=== PATIENT | female | born 1940 | race Caucasian/White ===

== ENCOUNTER → 2016-11-12 | Outpatient (CLI) | payer OTHER ==
--- NOTE | 2016-11-12 14:03 | MAMMOGRAPHY REPORT ---
BILATERAL DIGITAL SCREENING MAMMOGRAM WITH CAD: 11/12/2016 CLINICAL HISTORY: Routine screening. Patient has no complaints. TECHNIQUE: Current study was also evaluated with a Computer Aided Detection (CAD) system. Bilateral CC and MLO views were obtained. COMPARISON: Comparison is made to exams dated: 11/05/2015 mammogram, 10/30/2014 mammogram, 10/23/2013 ma mmogram, 10/20/2012 mammogram, 10/20/2011 mammogram, and 08/25/2010 mammogram - [facility] nter. BREAST COMPOSITION: There are scattered areas of fibroglandular density in both breasts. FINDINGS: No suspicious masses, calcifications, or areas of architectural distortion are noted in ei ther breast. There has been no significant interval change compared to prior exams. IMPRESSION: ACR BI-RADS CATEGORY 1: NEGATIVE There is no mammographic evidence of malignancy. A 1 year screening mammogram is recommended. The pa tient will receive written notification of the results. Approximately 10% of breast cancers are not detected with mammography. A negative mammographic report should not delay biopsy if a clinically suggestive mass is present. Roseann Sorensen M.D. /:11/12/2016 12:14:16 Soybean Grower: Marion CABEZAS)(Nina), [facility] letter sent: Normal 1/2 BI-RADS Code: ACR BI-RADS Category 1: Negative
== END | disposition home or self-care (01) ==
LOC: C.MAMM 11:45
PROVIDERS: ATTEND Family Medicine
DX: Z12.31 Encounter for screening mammogram for malignant neoplasm of breast (principal)

== ENCOUNTER → 2017-11-15 | Outpatient (CLI) | payer OTHER ==
--- NOTE | 2017-11-16 14:58 | MAMMOGRAPHY REPORT ---
BILATERAL DIGITAL SCREENING MAMMOGRAM TOMOSYNTHESIS WITH CAD: 11/15/2017 CLINICAL HISTORY: Routine screening. TECHNIQUE: The study was acquired using full field digital technology and interpreted from soft copy. Breast tomosynthesis in addition to standard 2D mammography was performed. Current study was also ev aluated with a Computer Aided Detection (CAD) system. COMPARISON: Comparison is made to exams dated: 11/12/2016 mammogram, 11/05/2015 mammogram, 10/30/2014 ma mmogram, 10/23/2013 mammogram, 10/20/2012 mammogram, and 10/20/2011 mammogram - [facility] nter. BREAST COMPOSITION: There are scattered areas of fibroglandular density in both breasts. FINDINGS: The parenchymal pattern is unchanged. No developing mass, architectural distortion or cluster of susp icious microcalcifications is seen in either breast. There are benign calcifications in both breasts . IMPRESSION: ACR BI-RADS CATEGORY 2: BENIGN There is no mammographic evidence of malignancy. A 1 year screening mammogram is recommended.( 019) The patient will receive written notification of the results. Some breast cancers are not detected with mammography. A negative mammographic report should not barbie y biopsy if a clinically suggestive mass is present. Zeny Benavides M.D. ay/:11/15/2017 16:15:27 Information Scientist: RT Miguel(Aileen)(M), [facility] letter sent: Normal 1/2 BI-RADS Code: ACR BI-RADS Category 2: Benign
== END | disposition home or self-care (01) ==
LOC: C.MAMM 11:56
PROVIDERS: ATTEND Family Medicine
DX: Z12.31 Encounter for screening mammogram for malignant neoplasm of breast (principal)

== ENCOUNTER 2022-07-09 15:41 | Inpatient (IN) ==
[2022-07-09] MEDS ORDERED: SODIUM CHLORIDE 0.9% 1000ML 1,000 ML IV ONE (16:02)
[2022-07-09 16:28] LABS: Basophils # (auto) 0.06 K/uL (0-0.2); Basophils % (auto) 0.4 %; Eosinophils # (auto) 0.35 K/uL (0-0.50); Eosinophils % (auto) 2.2 %; Hematocrit (blood only) 47.5 % (37.0-47.0); Hemoglobin 16.3 g/dl (12.0-16.0); Immature Granulocytes # (auto) 0.05 K/uL (0.01-0.20); Immature Granulocytes % (auto) 0.3 %; Lymphocytes # (auto) 2.68 K/uL (1.2-3.4); Lymphocytes % (auto) 16.7 %; Mean Corpuscular Hemoglobin 32.2 pg (25.0-34.0); Mean Corpuscular Hgb Conc 34.3 g/dL (32.0-36.0); Mean Corpuscular Volume 93.9 fL (80.0-100.0); Mean Platelet Volume 10.1 fL (9.4-12.4); Monocytes % (auto) 6.2 %; Neutrophils # (auto) 11.89 K/uL (1.40-6.50); Neutrophils % (auto) 74.2 %; Platelet Count 308 K/uL (130-400); RDW Coefficient of Variation 12.7 % (11.5-14.5); Red Blood Count 5.06 M/uL (4.20-5.40); White Blood Count 16.03 K/ul (4.8-10.8)
[2022-07-09 16:49] LABS: Albumin Level 4.5 gm/dl (3.4-5.0); Bilirubin Direct 0.2 mg/dl (0-0.2); Bilirubin,Total 0.8 mg/dl (0.2-1.0); Creatinine Clr Calc Pharmacy 55.9 ml/min; Est GFR (African American) 87.3 ml/min; Est GFR (Non-African American) 75.3 ml/min; Potassium 3.5 mmol/L (3.5-5.1); Total Protein 7.5 gm/dl (6.0-8.3)
[2022-07-09 17:02] LABS: Influenza A virus by PCR Negative (Neg); Influenza B virus by PCR Negative (Neg); RSV by PCR Negative (Neg); SARS CoV2 RNA(COVID-19) Ceph NEGATIVE (Negative)
[2022-07-09] MEDS ORDERED: OPTIRAY 350 100ml IV ONE (17:11)
--- NOTE | 2022-07-09 17:32 | CT Scan Report ---
CT OF THE ABDOMEN AND PELVIS WITH CONTRAST CLINICAL HISTORY: Nausea and vomiting. COMPARISON STUDY: None. TECHNIQUE: Following IV administration of 78 mL of Optiray, axial images of the abdomen and pelvis we re obtained from the lung bases to the proximal femurs. Images were reviewed in the axial, sagittal, and coronal planes. IV contrast was administered without complication. Automated exposure control wa s utilized for the study. A dose lowering technique was utilized adhering to the principles of ALARA . CT DOSE: 1053.78 mGy.cm FINDINGS: Lung bases are unremarkable. No pneumatosis, free air or portal venous gas is present. Live r, spleen, adrenal glands and pancreas are unremarkable. There is no biliary or pancreatic ductal dil atation. 2 left renal cysts measure up to 2.8 cm. There is no hydronephrosis. This study is mildly co mpromised by motion artifact. There is no evidence for a bowel obstruction. Extensive colonic diverti culosis is noted. There is no evidence for acute diverticulitis. The distal small bowel and right col on are mildly fluid-filled. The appendix is mildly dilated, measuring 8 mm in caliber. There is no ad jacent stranding. No free air or abscess is present. Calcified fundal fibroid is incidentally noted. There is no ascites. No lymphadenopathy. No acute fractures. No suspicious lesions are identified wit hin the visualized skeletal structures. IMPRESSION: 1. Mildly dilated appendix. However, no adjacent inflammation. Acute appendicitis is considered unlik yanci however close clinical follow-up is recommended. 2. Fluid-filled distal small bowel and right colon. This may reflect gastroenteritis. No bowel obstru ction. 3. Extensive colonic diverticulosis. No evidence for acute diverticulitis. ACT 112: Negative or not required by law. Electronically signed by: Camacho Loja M.D. 07/09/2022 5:30 PM
[2022-07-09] MEDS ORDERED: metroNIDAZOLE 500 MG/100 ML BAG IV STA (17:43)
[2022-07-09] MEDS ORDERED: cefTRIAXone SODIUM 1 GM ADDVIAL IV STA (17:43)
[2022-07-09] MEDS ORDERED: SODIUM CHLORIDE 0.9% 1000ML 1,000 ML IV SCH (18:00)
[2022-07-09] MEDS ORDERED: cefTRIAXone SODIUM 1,000 MG Advantage IV ONE (18:00)
[2022-07-09] MEDS ORDERED: cefTRIAXone SODIUM 1,000 MG in DEXTROSE 5% 50 ML IV ONE (18:00)
[2022-07-09 18:25] LABS: Appearance Urine Clear (Clear); Bilirubin Urine Negative (Negative); Blood Urine Negative (Negative); Color Urine Yellow; Glucose Urine UA Negative (Negative); Ketones Urine Negative (Negative); Leukocyte Esterase Urine Negative (Negative); Nitrite Urine Negative (Negative); Protein Urine Negative (Negative); Specific Gravity Urine 1.037 (1.000-1.030); Urobilinogen Urine Negative (Negative)
[2022-07-09] MEDS ORDERED: DEXTROSE 50% 50 ML SYRINGE IV ONE (18:52)
--- NOTE | 2022-07-09 18:54 | History & Physical Report ---
Date of Service July 09, 2022 Assessment & Plan (1) Nausea and vomiting: (2) Gastroenteritis: (3) Prolonged Q-T interval on ECG: (4) T2DM (type 2 diabetes mellitus): (5) HLD (hyperlipidemia): (6) Hypothyroidism: Plan This is an 81-year-old female who has significant past medical history of HTN, HLD, T2DM, hypothyroidism, age-related osteoporosis, idiopathic stuttering who presents to ED secondary to nausea and vomiting x2 days. Daughter is at bedside. Patient states on Wednesday, 5 days ago, she developed nausea and vomiting that lasted for several hours. CT abd/pelvis: Mildly dilated appendix. However, no adjacent inflammation. Acute appendicitis is considered unlikely however close clinical follow-up is recommended.2. Fluid-filled distal small bowel and right colon. This may reflect gastroenteritis. No bowel obstruction.3. Extensive colonic diverticulosis. No evidence for acute diverticulitis. Nausea and vomiting Gastroenteritis It appears as though patient may be suffering from gastroenteritis, possibly vi ral General surgery on board due to mildly dilated appendix, less likely acute appendicitis in setting of no abdominal pain -appreciate their recommendations, discussed with Tito Zapata PA-C Due to leukocytosis and gastroenteritis we will continue IV antibiotics for now with Rocephin and Flagyl Clear liquid diet Patient dehydrated with evidence of polycythemia on CBC, IV fluid NSS plus KCl a t 80 cc/h for additional 2 L, tomorrow attending can reassess fluid requirement If patient develops nausea, vomiting or abdominal pain overnight we will revert back to strict n.p.o. As needed Phenergan Prolonged QTc on interval EKG Repeat EKG in a.m. Last EKG in [facility] was from 2009 revealed normal QTc QTc length of 507 and 649 noted on ED EKG, patient is not on any QTc prolonging meds If still prolonged consider discussing with cardiology colleague T2DM, insulin dependent Last A1c 7.9 in January Obtain A1c in a.m. Lantus/NovoLog per protocol Hyperlipidemia Continue statin Hypothyroidism Continue Synthroid History of hypertension Not on meds, BP 147/98 in ED Monitor DVT prophylaxis: SQ heparin PCP: [place] FULL CODE Dispo: med tele A total of 75 minutes was spent with greater than 50% of that time personally viewing all current laboratory work and diagnostic imaging studies obtained in the ED. Additionally, I was able to view the patients past medication reconciliation and history with direct visualization in the patients chart. Included in the time above, a portion of that time was spent assessing the patient while discussing and collaborating with specialists, if necessary, and making medical decision making on treatment plan. All of the above was collaborated with Dr. Montes. Please see addendum for further details. History of Present Illness Chief Complaint: N/V x 2 days. Primary Care Provider: Marion El DO This is an 81-year-old female who has significant past medical history of HTN, HLD, T2DM, hypothyroidism, age-related osteoporosis, idiopathic stuttering who presents to ED secondary to nausea and vomiting x2 days. Daughter is at bedside. Patient states on Wednesday, 5 days ago, she developed nausea and vomiting that lasted for several hours. She just assumed she had a gastroenteritis. The following 2 to 3 days she felt generally unwell, but each day progressed to feeling better. Her appetite has been significantly decreased. 2 days ago she was able to return to her exercise class and she even had exercise class this morning. Yesterday and this morning she felt in her normal state of health. At baseline she lives alone at home, ambulates assist device and still drives. Today around 1 PM she developed acute onset nausea and profuse vomiting. She also felt dizzy and lightheaded. She was to see her PCP today, but called into the nurse who recommended EMS be summoned. In route she received antinausea medication and in ED received IV fluid. She is starting to feel better. Prior to my examination patient's blood sugar dropped to 57 and she refused received D50 which then improved her blood sugar to the low 200s. She denies any sick contacts, fever, chills, sweats, chest pain, shortness breath, palpitations, Cough, URI symptoms, abdominal pain, dysuria, increased urgency or frequency with urination, melena or hematochezia. She does feel generally bloated and also had diarrhea on Wednesday but denied any diarrheal episodes today. In ED patient remained hemodynamically stable. Lab work was notable for elevated WBC at 16 K, H&H 16.3 and 47.5, BUN 15, creatinine 0.75, urinalysis normal. CT abdomen pelvis concerning for mildly dilated appendix however no adjacent inflammation, fluid-filled distal small bowel and right colon concerning for a gastroenteritis. In ED she received IV fluid, 1 g IV Rocephin and 500 mg of IV Flagyl. Allergies Allergy/AdvReac Type Severity Reaction Status Date / Time Penicillins Allergy Mild RASH Verified 02/15/13 10:42 tetracycline Allergy Mild RASH Verified 02/15/13 10:42 morphine and related AdvReac mental Uncoded 07/09/22 18:50 status changes after codeine Home Medications Medication Instructions Recorded Confirmed Type alendronate 70 mg tablet 70 mg PO WK 07/09/22 07/09/22 History atorvastatin 80 mg tablet 80 mg PO DAILY 07/09/22 07/09/22 History cholecalciferol (vitamin D3) 25 25 mcg PO DAILY 07/09/22 07/09/22 History mcg (1,000 unit) tablet (Vitamin D3) insulin aspart U-100 100 unit/mL 1 sliding scale dose subcut 07/09/22 07/09/22 History (3 mL) subcutaneous pen (Novolog USEASDIRECTD FlexPen U-100 Insulin aspart) insulin degludec 100 See Rx Instructions .Route .COMPLEX 07/09/22 07/09/22 History unit-liraglutide 3.6 mg/mL(3 mL) subcutaneous pen (Xultophy 100/3.6) levothyroxine 75 mcg tablet 75 mcg PO DAILYBB 07/09/22 07/09/22 History Past Med/Surg History Medical History (Updated 07/09/22 @ 20:20 by Kimberly Bright PA-C) Age related osteoporosis HLD (hyperlipidemia) HTN (hypertension) Hx of vaginal delivery Hypothyroidism Idiopathic stuttering T2DM (type 2 diabetes mellitus) Surgical History (Updated 07/09/22 @ 20:13 by Kimberly Bright PA-C) History of tonsillectomy and adenoidectomy History of vitrectomy Hx of tubal ligation Family History (Updated 07/09/22 @ 20:17 by Kimberly Bright PA-C) Father Cancer Mother Cancer Social History (Updated 07/09/22 @ 20:15 by Kimberly Bright PA-C) Smoking Status: Former smoker Tobacco Type: Cigarettes packs per day: 1; Smoking End Date: ; Hx Alcohol Use: No Hx Substance Use: No Review of Systems Review of Systems: All systems reviewed & are unremarkable except as noted in HPI & below Physical Exam Physical Exam: Constitutional: WD/WN, elderly, female, idiopathic stutter noted, hard of hea ring but improves without mask, vitals as above, NAD, sitting up in bed, pleasant, conversing easily Head: Normocephalic, Atraumatic Eyes: PERRL, conjunctivae normal, anicteric sclerae ENMT: external ear and nose normal, oropharynx normal Neck: trachea midline, no thyromegaly normal visual inspection dry membranes Respiratory: normal respiratory effort, lungs clear to auscultation, no wheeze, rales, rhonchi. Normal insp/exp effort, no accessory muscle use Cardiovascular: RRR, no murmur, no edema Vessels: no JVD or carotid bruit Chest: normal inspection of chest Abdomen: normal bowel sounds, soft, nontender, mild distention, no hepatosplenomegaly Musculoskeletal: no cyanosis or clubbing, extremities motor strength 5/5 Skin: no rashes, warm and dry normal turgor Neurologic: PERRL, EOMI, accommodation nl, no face palsy, no dysarthria CN's II-XI intact bilaterally and moves all extremities Psychiatric: A+Ox3, euthymic affect Lymphatic: no cervical or axillary lymphadenopathy : deferred Results & Data Results & Data Vital Signs (Past 12 Hours) Vital Signs Temp Pulse Pulse Resp BP BP Pulse Ox 07/09/22 17:50 102 H 22 98 07/09/22 17:46 105 H 24 98 07/09/22 17:46 152/78 H 07/09/22 17:45 113 H 07/09/22 17:00 96 H 28 H 95 07/09/22 17:00 130/77 07/09/22 16:54 95 H 32 H 97 07/09/22 16:54 136/73 07/09/22 16:50 95 H 28 H 95 07/09/22 16:40 97 H 19 97 07/09/22 16:30 100 H 28 H 95 07/09/22 16:20 99 H 25 H 95 07/09/22 16:10 103 H 29 H 96 07/09/22 16:08 104 H 27 H 93 07/09/22 16:14 104 H 07/09/22 16:03 95 07/09/22 15:58 103 H 22 152/85 H 95 07/09/22 15:58 36.8 C 103 H 22 152/85 H 95 O2 Del Method 07/09/22 17:50 07/09/22 17:46 07/09/22 17:46 07/09/22 17:45 07/09/22 17:00 07/09/22 17:00 07/09/22 16:54 07/09/22 16:54 07/09/22 16:50 07/09/22 16:40 07/09/22 16:30 07/09/22 16:20 07/09/22 16:10 07/09/22 16:08 07/09/22 16:14 07/09/22 16:03 Room Air 07/09/22 15:58 Room Air 07/09/22 15:58 Room Air Diagnostic Findings Abdomen/Pelvis CT 07/09/22 16:39 CT OF THE ABDOMEN AND PELVIS WITH CONTRAST CLINICAL HISTORY: Nausea and vomiting. COMPARISON STUDY: None. TECHNIQUE: Following IV administration of 78 mL of Optiray, axial images of the abdomen and pelvis were obtained from the lung bases to the proximal femurs. Images were reviewed in the axial, sagittal, and coronal planes. IV contrast was administered without complication. Automated exposure control was utilized for the study. A dose lowering technique was utilized adhering to the principles of ALARA. CT DOSE: 1053.78 mGy.cm FINDINGS: Lung bases are unremarkable. No pneumatosis, free air or portal venous gas is present. Liver, spleen, adrenal glands and pancreas are unremarkable. There is no biliary or pancreatic ductal dilatation. 2 left renal cysts measure up to 2.8 cm. There is no hydronephrosis. This study is mildly compromised by motion artifact. There is no evidence for a bowel obstruction. Extensive colonic diverticulosis is noted. There is no evidence for acute diverticulitis. The distal small bowel and right colon are mildly fluid-filled. The appendix is mildly dilated, measuring 8 mm in caliber. There is no adjacent stranding. No free air or abscess is present. Calcified fundal fibroid is incidentally noted. There is no ascites. No lymphadenopathy. No acute fractures. No suspicious lesions are identified within the visualized skeletal structures. IMPRESSION: 1. Mildly dilated appendix. However, no adjacent inflammation. Acute appendicitis is considered unlikely however close clinical follow-up is recommended. 2. Fluid-filled distal small bowel and right colon. This may reflect gastroenteritis. No bowel obstruction. 3. Extensive colonic diverticulosis. No evidence for acute diverticulitis. ACT 112: Negative or not required by law. Electronically signed by: Camacho Loja M.D. 07/09/2022 5:30 PM Medications Administered Medication List Sodium Chloride (Nss 1000ml) 1,000 mls @ 125 mls/hr IV .Q8H RAHUL Stop: 08/08/22 17:59 Last Admin: 07/09/22 18:08 Dose: 125 mls/hr Documented By: ALFONZO Discontinued Medications Dextrose (Dextrose 50% 50 Ml Syringe) Confirm Administered Dose 50 ml IV .STK- MED ONE Stop: 07/09/22 18:53 Last Admin: 07/09/22 18:52 Dose: 50 ml Documented By: ALFONZO Sodium Chloride (Nss 1000ml) 1,000 mls @ 999 mls/hr IV .Q1H1M ONE Stop: 07/09/22 17:02 Last Infusion: 07/09/22 17:05 Dose: 0 mls/hr Documented By: Admin: 07/09/22 16:13 Dose: 999 mls/hr Documented By: ALFONZO Metronidazole (Flagyl) 500 mg in 100 mls @ 100 mls/hr IV NOW STA Stop: 07/09/22 18:42 Last Infusion: 07/09/22 18:59 Dose: 0 mls/hr Documented By: Admin: 07/09/22 18:07 Dose: 100 mls/hr Documented By: ALFONZO Ceftriaxone Sodium 1,000 mg/ (Dextrose) 50 mls @ 100 mls/hr IV NOW ONE Stop: 07/09/22 18:29 Last Infusion: 07/09/22 19:56 Dose: 0 mls/hr Documented By: Admin: 07/09/22 19:13 Dose: 100 mls/hr Documented By: ALFONZO Ioversol (Optiray 350 100ml) 78 ml IV ONCE ONE Stop: 07/09/22 17:12 Last Admin: 07/09/22 17:11 Dose: 78 ml Documented By: MICHELLE ECG Additional Comments: EKG reveals sinus tachycardia with a rate of 104 bpm and QTc of 507, initial EKG revealed 104 bpm, sinus tachycardia with a QTc of 649ms COVID-19 Results Results COVID-19 Adm Lab Results: RBC 5.06 M/uL (4.20-5.40) 07/09/22 WBC 16.03 K/ul (4.8-10.8) H 07/09/22 Hgb 16.3 g/dl (12.0-16.0) H 07/09/22 Hct 47.5 % (37.0-47.0) H 07/09/22 Plt Count 308 K/uL (130-400) 07/09/22 Neutrophils (%) (Auto) 74.2 % 07/09/22 Lymphocytes (%) (Auto) 16.7 % 07/09/22 Monocytes # (Auto) 1.00 K/uL (0.11-0.59) H 07/09/22 Eosinophils # (Auto) 0.35 K/uL (0-0.50) 07/09/22 Immature Granulocyte % (Auto) 0.3 % 07/09/22 Neutrophils # (Auto) 11.89 K/uL (1.40-6.50) H 07/09/22 Lymphocytes # (Auto) 2.68 K/uL (1.2-3.4) 07/09/22 Monocytes # (Auto) 1.00 K/uL (0.11-0.59) H 07/09/22 Eosinophils # (Auto) 0.35 K/uL (0-0.50) 07/09/22 Basophils # (Auto) 0.06 K/uL (0-0.2) 07/09/22 Immature Granulocyte # (Auto) 0.05 K/uL (0.01-0.20) 3 Na 142 mmol/L (136-145) 07/09/22 K 3.5 mmol/L (3.5-5.1) 07/09/22 Cl 105 mmol/L (98-107) 07/09/22 CO2 28 mmol/L (21-32) 07/09/22 Anion Gap 9 (3-11) 07/09/22 BUN 15 mg/dl (6-23) 07/09/22 Creatinine 0.75 mg/dl (0.6-1.2) 07/09/22 BUN/Creatinine Ratio 20.0 (10-20) 07/09/22 Glucose Level 108 mg/dl (70-99(Fasting)) H 07/09/22 Ca 10.0 mg/dl (8.6-10.3) 07/09/22 Total Bilirubin 0.8 mg/dl (0.2-1.0) 07/09/22 Direct Bilirubin 0.2 mg/dl (0-0.2) 07/09/22 AST/SGOT 31 U/L (13-39) 07/09/22 ALT/SGPT 30 U/L (7-52) 07/09/22 Alkaline Phosphatase 69 U/L (34-104) 07/09/22 Total Protein 7.5 gm/dl (6.0-8.3) 07/09/22 Albumin 4.5 gm/dl (3.4-5.0) 07/09/22 COVID-19 PCR NEGATIVE (Negative) 07/09/22 Influenza Virus Type A (PCR) Negative (Neg) 07/09/22 Influenza Virus Type B (PCR) Negative (Neg) 07/09/22 Code Status & VTE Plan Code Status FULL CODE VTE Prophylaxis Plan VTE Prophylaxis will be ordered: Yes Supervising Physician Co-Signing Physician Notes Care coordinated with: Kimberly Bright PA-C. 81yo F with recurring N/V for the past 5 days, without abdominal pain or changes to BM. CT abd/pelvis noted a dilated appendix and signs of gastroenteritis, WBC elevated greater than 16, 000. EKG with qtc of 600, pt received zofran en route to the hospital. Afebrile, tachycardic. General: Alert, oriented. No acute distress, laying comfortably in bed Skin: No noted rashes or bruises Psych: Appropriate mood and affect Neuro: No gross deficits HEENT: PERRL, oropharynx moist. CV: RRR, Normal s1, s2. No murmurs appreciated Resp: Breath sounds clear bilaterally, no increased effort of breathing. No crackles/rhonchi/rales. Abdomen: BS+. Soft, nontender, nondistended. No guarding. Extremities: No edema in lower extremities bilaterally. 81yo pt with concern for appendicitis, but imaging and exam more suggestive of gastroenteritis. General surgery consult- they recommend can be on clears until further assessment. Admit med/tele due to qtc, consider non-qt prolonging antinausea meds Cipro/Flagyl given concern for appendicitis/abdominal infection with elevated WBC. Otherwise see note above. Agree with the assessment and plan of Kimberly Bright PA-C.
--- NOTE | 2022-07-09 19:48 | Surgery Consultation ---
Date of Consultation July 09, 2022 Assessment & Plan (1) Nausea and vomiting: The patient is being admitted on the hospitalist service. Based on patient's symptomatology and CT scan findings it appears the patient may be suffering from a gastroenteritis. As the patient does not have any pain in the right lower quadrant on physical exam and there is no periappendiceal inflammation noted on CAT scan the diagnosis of appendicitis is less likely. We do recommend proceeding as follows: Provide IV fluid for hydration Provide antiemetics and analgesics as needed Empiric antibiotics in the form of Rocephin and Flagyl have been initiated by the treating emergency room physician. It would be reasonable to continue these. The patient may have clear liquids at the present time. If any further nausea or vomiting or the development abdominal pain ensues I would recommend backing the patient down n.p.o. I had a lengthy discussion with the patient and her daughter who was present at the bedside. I discussed with them that the diagnosis of appendicitis is less likely is due to the fact that there are no inflammatory findings noted on CT scan and she has absolutely no abdominal pain. I did discuss with them that we will follow her with serial exams and if there is any change in her physical exam the topic of acute appendicitis can be revisited. We will continue to follow along while she is hospitalized with additional recommendations based on her clinical course as it unfolds. Supervising Physician Co-Signing Physician Notes pnt discussed overnight with ED physician and [facility]. labs and imaging reviewed. no e/o appendicitis on CT, dilation likely physiologic secondary to enteritis. no surgical intervention for now. History of Present Illness Reason for Consultation: Dilated appendix History of Present Illness This is an 81-year-old female who presented to the emergency department secondary to nausea and vomiting. Patient notes about 5 days ago she had a sudden onset of nausea and vomiting without abdominal pain. She notes that the symptoms resolved within 24 hours and subsequently returned earlier today. The patient says that she ate solid food for lunch only to have nausea and vomiting return. She again denies any abdominal pain. She denies any fevers, shakes, or chills. She notes that with her nausea and vomiting she has not had any hematemesis. She notes that her bowels have been functioning normally with her most recent bowel movement yesterday and she denies bright red blood per rectum, hematochezia, or melena. She does note that she has had 1 prior abdominal surgery in the form of a tubal ligation. Since arrival to the emergency department patient has had labs and imaging which independent reviewed. There is no evidence of pneumatosis or free intraperitoneal air. There is no portal venous gas. There is no evidence of bowel obstruction. There is no evidence of diverticulitis. The appendix was noted to be dilated measuring 8 mm however there is no adjacent stranding making the diagnosis of appendicitis unlikely. Of note there is also no free air or noted abscess. The distal small bowel and right colon are fluid-filled raising the concern for a likely gastroenteritis. Labs include a CBC her white blood cell count is elevated 16.0. Her hemoglobin and hematocrit were 16.3 and 47.5. Platelet count is normal. Chemistry profile showed sodium, potassium, BUN, and creatinine are normal. There is no elevation of LFTs or lipase. Urinalysis was not indicative of infection. The patient was tested for COVID, influenza a and B, as well as RSV all of which were negative. I did question the patient about her activities of daily living and she notes that she goes to the gym several times per week where she does cardiovascular exercise. She says she has been able to maintain her usual amount of exercise without any limitations by factors such as chest pain or shortness of breath. Concerning past medical history the patient says that she is a diabetic. In addition she has osteoporosis and hypothyroidism. Concerning past surgical history the patient has had a tubal ligation Concerning social history the patient says she is a remote smoker but has not smoked in many years. At the time of my interview the patient was resting comfortably in bed and she was in no distress. Allergies Allergy/AdvReac Type Severity Reaction Status Date / Time Penicillins Allergy Mild RASH Verified 02/15/13 10:42 tetracycline Allergy Mild RASH Verified 02/15/13 10:42 codeine AdvReac mental Verified 07/09/22 22:27 status changes after codeine morphine AdvReac mental Verified 07/09/22 22:27 status changes after codeine Home Medications Medication Instructions Recorded Confirmed Type alendronate 70 mg tablet 70 mg PO WK 07/09/22 07/09/22 History atorvastatin 80 mg tablet 80 mg PO DAILY 07/09/22 07/09/22 History cholecalciferol (vitamin D3) 25 25 mcg PO DAILY 07/09/22 07/09/22 History mcg (1,000 unit) tablet (Vitamin D3) insulin aspart U-100 100 unit/mL 1 sliding scale dose subcut 07/09/22 07/09/22 History (3 mL) subcutaneous pen (Novolog USEASDIRECTD FlexPen U-100 Insulin aspart) insulin degludec 100 See Rx Instructions .Route .COMPLEX 07/09/22 07/09/22 History unit-liraglutide 3.6 mg/mL(3 mL) subcutaneous pen (Xultophy 100/3.6) levothyroxine 75 mcg tablet 75 mcg PO DAILYBB 07/09/22 07/09/22 History Patient History Medical History Age related osteoporosis HLD (hyperlipidemia) HTN (hypertension) Hx of vaginal delivery Hypothyroidism Idiopathic stuttering T2DM (type 2 diabetes mellitus) Surgical History History of tonsillectomy and adenoidectomy History of vitrectomy Hx of tubal ligation Family History Father Cancer Mother Cancer Social History Smoking Status: Former smoker Tobacco Type: Cigarettes packs per day: 1; Smoking End Date: ; Hx Alcohol Use: Yes Hx Substance Use: No Current Living Situation: Alone Feels Safe at Home: Yes Safety Concerns: Feels Safe At This Time Review of Systems Constitutional: no fever and no chills Eyes: no eye pain Ear, Nose, Mouth, Throat: + hearing loss Respiratory: no cough and no dyspnea Cardiovascular: no chest pain Gastrointestinal: as per Subjective / HPI, + nausea and + vomiting; no abdominal pain Genitourinary: no dysuria Musculoskeletal: no back pain Integumentary: no rash Neurologic: no localized weakness Physical Exam Constitutional: WD/WN, vitals as above Eyes: no conjunctival abnormality ENMT: Ears: + hearing impairment Oral mucosa is dry Neck: trachea midline Respiratory: normal respiratory effort, lungs clear to auscultation Cardiovascular: Rate/Rhythm: regular rate and regular rhythm Vessels: radial pulses present Gastrointestinal (Abdomen): Abdomen has slight distention noted. It is otherwise soft and nonrigid. I did not appreciate any masses organomegaly. There is no rebound tenderness or guarding. There is no pain elicited with light or deep palpation specifically no pain over McBurney's point in the right lower quadrant Musculoskeletal: No calf tenderness. No lower extremity edema Skin: no rashes Neurologic: moves all extremities Psychiatric: A+Ox3, euthymic affect Results & Data Vital Signs (Past 12 Hours) Vital Signs Temp Pulse Pulse Resp BP BP Pulse Ox 07/09/22 19:20 101 H 27 H 97 07/09/22 19:10 100 H 28 H 98 07/09/22 19:01 104 H 15 97 07/09/22 19:01 147/98 H 07/09/22 19:00 106 H 20 85 L 07/09/22 18:50 99 H 26 H 96 07/09/22 18:40 102 H 29 H 97 07/09/22 18:30 98 H 24 96 07/09/22 18:30 143/76 H 07/09/22 18:20 101 H 25 H 97 07/09/22 18:10 101 H 28 H 97 07/09/22 18:00 97 H 24 96 07/09/22 18:00 142/79 H 07/09/22 17:50 102 H 22 98 07/09/22 17:46 105 H 24 98 07/09/22 17:46 152/78 H 07/09/22 17:45 113 H 07/09/22 17:00 96 H 28 H 95 07/09/22 17:00 130/77 07/09/22 16:54 95 H 32 H 97 07/09/22 16:54 136/73 07/09/22 16:50 95 H 28 H 95 07/09/22 16:40 97 H 19 97 07/09/22 16:30 100 H 28 H 95 07/09/22 16:20 99 H 25 H 95 07/09/22 16:10 103 H 29 H 96 07/09/22 16:08 104 H 27 H 93 07/09/22 16:14 104 H 07/09/22 16:03 95 07/09/22 15:58 103 H 22 152/85 H 95 07/09/22 15:58 36.8 C 103 H 22 152/85 H 95 O2 Del Method 07/09/22 19:20 07/09/22 19:10 07/09/22 19:01 07/09/22 19:01 07/09/22 19:00 07/09/22 18:50 07/09/22 18:40 07/09/22 18:30 07/09/22 18:30 07/09/22 18:20 07/09/22 18:10 07/09/22 18:00 07/09/22 18:00 07/09/22 17:50 07/09/22 17:46 07/09/22 17:46 07/09/22 17:45 07/09/22 17:00 07/09/22 17:00 07/09/22 16:54 07/09/22 16:54 07/09/22 16:50 07/09/22 16:40 07/09/22 16:30 07/09/22 16:20 07/09/22 16:10 07/09/22 16:08 07/09/22 16:14 07/09/22 16:03 Room Air 07/09/22 15:58 Room Air 07/09/22 15:58 Room Air PG Care Time/CCT Total # of Minutes Spent Total Time Spent with Patient: Total time spent is greater than 50% in coordination of care (as documented) at patient's floor/unit and/or counseling patient: Coding Level of Care Code 05425 INT INP/OBS CARE 3/75MIN Diagnoses Nausea and vomiting R11.2
[2022-07-09] MEDS ORDERED: GLUCAGON FOR INJ 1 MG VIAL SQ PRN (20:58)
[2022-07-09] MEDS ORDERED: CARBOHYDRATES FOR HYPOGLYCEMIA PO PRN (20:58)
[2022-07-09] MEDS ORDERED: GLUCOSE 10 TAB/TUBE PO PRN (20:58)
[2022-07-09] MEDS ORDERED: ALUMINUM/MAGNESIUM SUSP 30 ML UDC PO PRN (20:58)
[2022-07-09] MEDS ORDERED: GLUCOSE 40% GEL 15 GM TUBE PO PRN (20:58)
[2022-07-09] MEDS ORDERED: PROMETHAZINE HCL 6.25 MG in SODIUM CHLORIDE 0.9% 50 ML IV PRN (20:58)
[2022-07-09] MEDS ORDERED: DEXTROSE 50% 50 ML SYRINGE IV PRN (20:58)
[2022-07-09] MEDS ORDERED: ACETAMINOPHEN 325 MG TAB PO PRN (20:58)
[2022-07-09] MEDS: INSULIN ASPART PER UNIT CHARGE SC SCH (21:18)
[2022-07-09] MEDS: LANTUS PER UNIT CHARGE SQ SCH (21:18)
[2022-07-09] MEDS: NSS + 20MEQ KCL 20 MEQ/1,000 ML BAG IV SCH (22:00)
[2022-07-09] MEDS: HEPARIN SOD 5,000 UNIT/0.5 ML VIAL SQ SCH (22:01)
[2022-07-09] MEDS ORDERED: MELATONIN 3 MG TAB PO PRN (22:24)
--- NOTE | 2022-07-09 23:48 | Emergency Department Note ---
History of Present Illness General Chief complaint: Hypertension Stated complaint: HYPERTENSION Time Seen by Provider: 07/09/22 15:53 History of Present Illness Provider Complaint: + nausea and + vomiting Onset (ago): day(s) 5 Description of Vomiting: no bilious, no blood-streaked, no bloody or no coffee grounds Associated Abdominal Pain: No Context: no foreign travel, no recent antibiotic use, no recent surgery/procedure, no alcohol abuse, no trauma, no smoking or no marijuana use Associated symptoms: + dysuria; no myalgias, no chest pain, no cough, no fever/chills, no headaches or no palpitation Home Medications Medication Instructions Recorded Confirmed Type alendronate 70 mg tablet 70 mg PO WK 07/09/22 07/09/22 History atorvastatin 80 mg tablet 80 mg PO DAILY 07/09/22 07/09/22 History cholecalciferol (vitamin D3) 25 25 mcg PO DAILY 07/09/22 07/09/22 History mcg (1,000 unit) tablet (Vitamin D3) insulin aspart U-100 100 unit/mL 1 sliding scale dose subcut 07/09/22 07/09/22 History (3 mL) subcutaneous pen (Novolog USEASDIRECTD FlexPen U-100 Insulin aspart) insulin degludec 100 See Rx Instructions .Route .COMPLEX 07/09/22 07/09/22 History unit-liraglutide 3.6 mg/mL(3 mL) subcutaneous pen (Xultophy 100/3.6) levothyroxine 75 mcg tablet 75 mcg PO DAILYBB 07/09/22 07/09/22 History Allergies Allergy/AdvReac Type Severity Reaction Status Date / Time Penicillins Allergy Mild RASH Verified 02/15/13 10:42 tetracycline Allergy Mild RASH Verified 02/15/13 10:42 codeine AdvReac mental Verified 07/09/22 22:27 status changes after codeine morphine AdvReac mental Verified 07/09/22 22:27 status changes after codeine Past Med/Surg History Medical History Age related osteoporosis HLD (hyperlipidemia) HTN (hypertension) Hx of vaginal delivery Hypothyroidism Idiopathic stuttering T2DM (type 2 diabetes mellitus) Surgical History History of tonsillectomy and adenoidectomy History of vitrectomy Hx of tubal ligation Family History Father Cancer Mother Cancer Social History Smoking Status: Former smoker Tobacco Type: Cigarettes packs per day: 1; Smoking End Date: ; Hx Alcohol Use: Yes Hx Substance Use: No Current Living Situation: Alone Feels Safe at Home: Yes Safety Concerns: Feels Safe At This Time Physical Exam Vital Signs: Vital Signs - 24 hr 07/09/22 15:58 07/09/22 15:58 07/09/22 16:03 Temperature 36.8 C Temperature Source Oral Pulse Rate 103 H Pulse Rate [Apical ] 103 H Pulse Rate from Sp O2 Sensor Pulse Rhythm Regular Pulse Rhythm [Apic al] Regular Pulse Strength Normal Pulse Strength [Ap ical] Normal Respiratory Rate 22 22 Respiratory Effort / Characteristics Non-Labored Non-Labored Respiratory Depth Normal Normal Respiratory Patter n Regular Regular Blood Pressure 152/85 H Blood Pressure [Ri ght Arm] 152/85 H Blood Pressure Rosa n 107 Blood Pressure Rosa n [Right Arm] 107 Blood Pressure Pos ition [Right Arm] Lying Pulse Oximetry 95 95 95 Oxygen Delivery Me thod Room Air Room Air Room Air Sepsis Recent Feve r Within 48 Hours No Sepsis New/Unexpla ined Change in Men lino Status N/A Sepsis Action Take n by Nursing Physician Notified 07/09/22 16:14 07/09/22 16:08 07/09/22 16:10 Temperature Temperature Source Pulse Rate 104 H 104 H 103 H Pulse Rate [Apical ] Pulse Rate from Sp O2 Sensor 104 H 103 H Pulse Rhythm Pulse Rhythm [Apic al] Pulse Strength Pulse Strength [Ap ical] Respiratory Rate 27 H 29 H Respiratory Effort / Characteristics Respiratory Depth Respiratory Patter n Blood Pressure Blood Pressure [Ri ght Arm] Blood Pressure Rosa n Blood Pressure Rosa n [Right Arm] Blood Pressure Pos ition [Right Arm] Pulse Oximetry 93 96 Oxygen Delivery Me thod Sepsis Recent Feve r Within 48 Hours Sepsis New/Unexpla ined Change in Men lino Status Sepsis Action Take n by Nursing 07/09/22 16:20 07/09/22 16:30 07/09/22 16:40 Temperature Temperature Source Pulse Rate 99 H 100 H 97 H Pulse Rate [Apical ] Pulse Rate from Sp O2 Sensor 99 H 99 H 98 H Pulse Rhythm Pulse Rhythm [Apic al] Pulse Strength Pulse Strength [Ap ical] Respiratory Rate 25 H 28 H 19 Respiratory Effort / Characteristics Respiratory Depth Respiratory Patter n Blood Pressure Blood Pressure [Ri ght Arm] Blood Pressure Rosa n Blood Pressure Rosa n [Right Arm] Blood Pressure Pos ition [Right Arm] Pulse Oximetry 95 95 97 Oxygen Delivery Me thod Sepsis Recent Feve r Within 48 Hours Sepsis New/Unexpla ined Change in Men lino Status Sepsis Action Take n by Nursing 07/09/22 16:50 07/09/22 16:54 07/09/22 16:54 Temperature Temperature Source Pulse Rate 95 H 95 H Pulse Rate [Apical ] Pulse Rate from Sp O2 Sensor 95 H 96 H Pulse Rhythm Pulse Rhythm [Apic al] Pulse Strength Pulse Strength [Ap ical] Respiratory Rate 28 H 32 H Respiratory Effort / Characteristics Respiratory Depth Respiratory Patter n Blood Pressure 136/73 Blood Pressure [Ri ght Arm] Blood Pressure Rosa n 94 Blood Pressure Rosa n [Right Arm] Blood Pressure Pos ition [Right Arm] Pulse Oximetry 95 97 Oxygen Delivery Me thod Sepsis Recent Feve r Within 48 Hours Sepsis New/Unexpla ined Change in Men lino Status Sepsis Action Take n by Nursing 07/09/22 17:00 07/09/22 17:00 07/09/22 17:45 Temperature Temperature Source Pulse Rate 96 H 113 H Pulse Rate [Apical ] Pulse Rate from Sp O2 Sensor 98 H Pulse Rhythm Pulse Rhythm [Apic al] Pulse Strength Pulse Strength [Ap ical] Respiratory Rate 28 H Respiratory Effort / Characteristics Respiratory Depth Respiratory Patter n Blood Pressure 130/77 Blood Pressure [Ri ght Arm] Blood Pressure Rosa n 94 Blood Pressure Rosa n [Right Arm] Blood Pressure Pos ition [Right Arm] Pulse Oximetry 95 Oxygen Delivery Me thod Sepsis Recent Feve r Within 48 Hours Sepsis New/Unexpla ined Change in Men lino Status Sepsis Action Take n by Nursing 07/09/22 17:46 07/09/22 17:46 07/09/22 17:50 Temperature Temperature Source Pulse Rate 105 H 102 H Pulse Rate [Apical ] Pulse Rate from Sp O2 Sensor 106 H 102 H Pulse Rhythm Pulse Rhythm [Apic al] Pulse Strength Pulse Strength [Ap ical] Respiratory Rate 24 22 Respiratory Effort / Characteristics Respiratory Depth Respiratory Patter n Blood Pressure 152/78 H Blood Pressure [Ri ght Arm] Blood Pressure Rosa n 102 Blood Pressure Rosa n [Right Arm] Blood Pressure Pos ition [Right Arm] Pulse Oximetry 98 98 Oxygen Delivery Me thod Sepsis Recent Feve r Within 48 Hours Sepsis New/Unexpla ined Change in Men lino Status Sepsis Action Take n by Nursing 07/09/22 18:00 07/09/22 18:00 07/09/22 18:10 Temperature Temperature Source Pulse Rate 97 H 101 H Pulse Rate [Apical ] Pulse Rate from Sp O2 Sensor 98 H 101 H Pulse Rhythm Pulse Rhythm [Apic al] Pulse Strength Pulse Strength [Ap ical] Respiratory Rate 24 28 H Respiratory Effort / Characteristics Respiratory Depth Respiratory Patter n Blood Pressure 142/79 H Blood Pressure [Ri ght Arm] Blood Pressure Rosa n 100 Blood Pressure Rosa n [Right Arm] Blood Pressure Pos ition [Right Arm] Pulse Oximetry 96 97 Oxygen Delivery Me thod Sepsis Recent Feve r Within 48 Hours Sepsis New/Unexpla ined Change in Men lino Status Sepsis Action Take n by Nursing 07/09/22 18:20 07/09/22 18:30 07/09/22 18:30 Temperature Temperature Source Pulse Rate 101 H 98 H Pulse Rate [Apical ] Pulse Rate from Sp O2 Sensor 102 H 98 H Pulse Rhythm Pulse Rhythm [Apic al] Pulse Strength Pulse Strength [Ap ical] Respiratory Rate 25 H 24 Respiratory Effort / Characteristics Respiratory Depth Respiratory Patter n Blood Pressure 143/76 H Blood Pressure [Ri ght Arm] Blood Pressure Rosa n 98 Blood Pressure Rosa n [Right Arm] Blood Pressure Pos ition [Right Arm] Pulse Oximetry 97 96 Oxygen Delivery Me thod Sepsis Recent Feve r Within 48 Hours Sepsis New/Unexpla ined Change in Men lino Status Sepsis Action Take n by Nursing 07/09/22 18:40 07/09/22 18:50 Temperature Temperature Source Pulse Rate 102 H 99 H Pulse Rate [Apical ] Pulse Rate from Sp O2 Sensor 102 H 99 H Pulse Rhythm Pulse Rhythm [Apic al] Pulse Strength Pulse Strength [Ap ical] Respiratory Rate 29 H 26 H Respiratory Effort / Characteristics Respiratory Depth Respiratory Patter n Blood Pressure Blood Pressure [Ri ght Arm] Blood Pressure Rosa n Blood Pressure Rosa n [Right Arm] Blood Pressure Pos ition [Right Arm] Pulse Oximetry 97 96 Oxygen Delivery Me thod Sepsis Recent Feve r Within 48 Hours Sepsis New/Unexpla ined Change in Men lino Status Sepsis Action Take n by Nursing Physical Exam: Physical Exam GENERAL: She is oriented to person, place, and time. She appears well-developed and well-nourished. She does not appear distressed. HENT: Exam performed. -Head: Normocephalic and atraumatic. -Right Ear: External ear normal. No mastoid erythema -Left Ear: External ear normal. No mastoid erythema NECK: Normal range of motion. Neck supple. No JVD present.No tracheal deviation and normal range of motion present. CV: Normal rate, regular rhythm, normal heart sounds and intact distal pulses. There is no peripheral edema. Palpable radial pulses bue. PULM/CHEST: Effort normal and breath sounds normal. No respiratory distress. No stridor. She has no wheezes. She has no rales. -Chest Wall: She exhibits no tenderness. ABD: The abdomen is soft. Bowel sounds are normal. She has no distension. No mass is present. There is no tenderness. There is no rebound, no guarding, no Meraz's sign and no tenderness at McBurney's point. Rovsig negative MUSC/SKEL: Normal range of motion. There is no peripheral edema, tenderness or deformity. LYMPH: No cervical adenopathy. NEURO: She is alert and oriented to person, place, and time. She has normal strength. No cranial nerve deficit or sensory deficit. Coordination and gait normal. GCS eye subscore is 4. GCS verbal subscore is 5. GCS motor subscore is 6. Cerebellar tests wnl. SKIN: Skin is warm and dry. She is not diaphoretic. PSYCH: She has a normal mood and affect. Behavior is normal. Judgment and thought content normal. Course Course 1553: The patient was evaluated in room B7. A complete history and physical exam was performed Cardiac monitoring: An order was placed for continuous cardiac monitoring. The monitor shows a rate of 100 with sinus rhythm interpreted by me 1605: Patient's EKG shows a prolonged QTc. We will hold off on giving any agents that could possibly prolong her QTc further. 1755: Vital signs stable. Labs show leukocytosis of 16.03. Otherwise unremarkable. CT of the abdomen pelvis shows a mildly dilated appendix however there is no adjacent inflammation. Appendix is measuring 8 mm in caliber. Acute appendicitis considered unlikely however close clinical follow-up is recommended. The patient has fluid-filled distal small bowel right colon reflecting gastroenteritis no obstruction. On reassessment the patient has no pain on palpation of her abdomen. No pain on palpation right lower quadrant. Patient states she feels better after IV fluids. Discussed case with Dr. Curtis. It is not felt by me that the patient needs acute OR intervention as the patient has no pain on palpation of her abdomen however given her age, symptoms of nausea, new prolonged QTc, and CT findings, it was thought that that would be best that the patient be observed in the hospital overnight. Dr. Curtis and is in agreement. He agrees to be on consult and the plan is to admit the patient to the medicine team. Antibiotics Rocephin and Flagyl ordered for the patient for potential appendicitis to cover. 1804: Discussed with Kimberly Gomez [facility] hospitalist team who stated to admit to Dr Ruiz. Administered Medications Heparin Sodium (Porcine) (Heparin Sod 5,000 Unit/0.5 Ml Vial) 5,000 units SQ Q8 [facility] Stop: 08/08/22 21:59 Last Admin: 07/09/22 22:01 Dose: 5,000 units Documented By: TEDDY Potassium Chloride/Sodium Chloride (Normal Saline W/20 Meq Kcl) 20 meq in 1,000 mls @ 75 mls/hr IV .[id number] [facility]; Protocol Stop: 07/10/22 23:37 Last Admin: 07/09/22 22:00 Dose: 75 mls/hr Documented By: TEDDY Insulin Aspart (Insulin Aspart Per Unit Charge) 0 units SC ACHS [facility] Stop: 08/08/22 20:59 Last Admin: 07/09/22 21:18 Dose: Not Given Documented By: TEDDY Insulin Glargine (Lantus Per Unit Charge) 0 units SQ BID [facility]; Protocol Stop: 08/08/22 20:59 Last Admin: 07/09/22 21:18 Dose: Not Given Documented By: TEDDY Melatonin (Melatonin 3 Mg Tab) 3 mg PO HS PRN PRN Reason: Sleep Stop: 08/08/22 22:23 Last Admin: 07/09/22 22:44 Dose: 3 mg Documented By: TEDDY Discontinued Medications Dextrose (Dextrose 50% 50 Ml Syringe) Confirm Administered Dose 50 ml IV .STK- MED ONE Stop: 07/09/22 18:53 Last Admin: 07/09/22 18:52 Dose: 50 ml Documented By: RSL Sodium Chloride (Nss 1000ml) 1,000 mls @ 999 mls/hr IV .Q1H1M ONE Stop: 07/09/22 17:02 Last Infusion: 07/09/22 17:05 Dose: 0 mls/hr Documented By: Admin: 07/09/22 16:13 Dose: 999 mls/hr Documented By: RSL Metronidazole (Flagyl) 500 mg in 100 mls @ 100 mls/hr IV NOW STA Stop: 07/09/22 18:42 Last Infusion: 07/09/22 18:59 Dose: 0 mls/hr Documented By: Admin: 07/09/22 18:07 Dose: 100 mls/hr Documented By: RSL Sodium Chloride (Nss 1000ml) 1,000 mls @ 125 mls/hr IV .Q8H RAHUL Stop: 08/08/22 17:59 Last Infusion: 07/09/22 21:13 Dose: 0 mls/hr Documented By: Admin: 07/09/22 18:08 Dose: 125 mls/hr Documented By: ALFONZO Ceftriaxone Sodium 1,000 mg/ (Dextrose) 50 mls @ 100 mls/hr IV NOW ONE Stop: 07/09/22 18:29 Last Infusion: 07/09/22 19:56 Dose: 0 mls/hr Documented By: RSCande Admin: 07/09/22 19:13 Dose: 100 mls/hr Documented By: RSCande Ioversol (Optiray 350 100ml) 78 ml IV ONCE ONE Stop: 07/09/22 17:12 Last Admin: 07/09/22 17:11 Dose: 78 ml Documented By: MICHELLE Medical Decision Making Medical Records Attestation: I reviewed the patient's medical records. External medical records were obtained by Zay senior construction manager from [employer]. Patient has an EKG from May 14, 2009 which showed no prolonged QTc. Laboratory Data Attestation: I reviewed the patient's lab results. 07/09/22 15:57 07/09/22 15:57 Lab Results 07/09/22 07/09/22 07/09/22 Range/Units 15:57 15:57 16:03 WBC 16.03 H (4.8-10.8) K/ul RBC 5.06 (4.20-5.40) M/uL Hgb 16.3 H (12.0-16.0) g/dl Hct 47.5 H (37.0-47.0) % MCV 93.9 (80.0-100.0) fL MCH 32.2 (25.0-34.0) pg MCHC 34.3 (32.0-36.0) g/dL RDW Std Deviation 44.0 (36.4-46.3) fL RDW Coeff of Neto 12.7 (11.5-14.5) % Plt Count 308 (130-400) K/uL MPV 10.1 (9.4-12.4) fL Immature Gran % (Auto) 0.3 % Neut % (Auto) 74.2 % Lymph % (Auto) 16.7 % [place] % (Auto) 6.2 % Eos % (Auto) 2.2 % Baso % (Auto) 0.4 % Neut # (Auto) 11.89 H (1.40-6.50) K/uL Lymph # (Auto) 2.68 (1.2-3.4) K/uL [place] # (Auto) 1.00 H (0.11-0.59) K/uL Eos # (Auto) 0.35 (0-0.50) K/uL Baso # (Auto) 0.06 (0-0.2) K/uL Immature Gran # (Auto) 0.05 (0.01-0.20) K/uL Sodium 142 (136-145) mmol/L Potassium 3.5 (3.5-5.1) mmol/L Chloride 105 (98-107) mmol/L Carbon Dioxide 28 (21-32) mmol/L Anion Gap 9 (3-11) BUN 15 (6-23) mg/dl Creatinine 0.75 (0.6-1.2) mg/dl Est Cr Clr Drug Dosing 55.9 ml/min Est GFR ( Amer) 87.3 ml/min Est GFR (Non-Af Amer) 75.3 ml/min BUN/Creatinine Ratio 20.0 (10-20) Glucose 108 H (70-99(Fasting)) mg/dl POC Glucose (70-99) mg/dl Calcium 10.0 (8.6-10.3) mg/dl Magnesium 2.0 (1.7-2.4) mg/dl Total Bilirubin 0.8 (0.2-1.0) mg/dl Direct Bilirubin 0.2 (0-0.2) mg/dl AST 31 (13-39) U/L ALT 30 (7-52) U/L Alkaline Phosphatase 69 (34-104) U/L Total Protein 7.5 (6.0-8.3) gm/dl Albumin 4.5 (3.4-5.0) gm/dl Lipase 23 Cancelled (11-82) U/L Urine Color Urine Appearance (Clear) Urine pH (4.5-7.5) Ur Specific Loda (1.000-1.030) Urine Protein (Negative) Urine Glucose (UA) (Negative) Urine Ketones (Negative) Urine Blood (Negative) Urine Nitrite (Negative) Urine Bilirubin (Negative) Urine Urobilinogen (Negative) Ur Leukocyte Esterase (Negative) SARS-CoV-2 (PCR) (Negative) Influenza Type A (PCR) (Neg) Influenza Type B (PCR) (Neg) RSV (RT-PCR) (Neg) 07/09/22 07/09/22 07/09/22 Range/Units 16:03 17:40 18:43 WBC (4.8-10.8) K/ul RBC (4.20-5.40) M/uL Hgb (12.0-16.0) g/dl Hct (37.0-47.0) % MCV (80.0-100.0) fL MCH (25.0-34.0) pg MCHC (32.0-36.0) g/dL RDW Std Deviation (36.4-46.3) fL RDW Coeff of Neto (11.5-14.5) % Plt Count (130-400) K/uL MPV (9.4-12.4) fL Immature Gran % (Auto) % Neut % (Auto) % Lymph % (Auto) % [place] % (Auto) % Eos % (Auto) % Baso % (Auto) % Neut # (Auto) (1.40-6.50) K/uL Lymph # (Auto) (1.2-3.4) K/uL [place] # (Auto) (0.11-0.59) K/uL Eos # (Auto) (0-0.50) K/uL Baso # (Auto) (0-0.2) K/uL Immature Gran # (Auto) (0.01-0.20) K/uL Sodium (136-145) mmol/L Potassium (3.5-5.1) mmol/L Chloride (98-107) mmol/L Carbon Dioxide (21-32) mmol/L Anion Gap (3-11) BUN (6-23) mg/dl Creatinine (0.6-1.2) mg/dl Est Cr Clr Drug Dosing ml/min Est GFR ( Amer) ml/min Est GFR (Non-Af Amer) ml/min BUN/Creatinine Ratio (10-20) Glucose (70-99(Fasting)) mg/dl POC Glucose 57 L* (70-99) mg/dl Calcium (8.6-10.3) mg/dl Magnesium (1.7-2.4) mg/dl Total Bilirubin (0.2-1.0) mg/dl Direct Bilirubin (0-0.2) mg/dl AST (13-39) U/L ALT (7-52) U/L Alkaline Phosphatase (34-104) U/L Total Protein (6.0-8.3) gm/dl Albumin (3.4-5.0) gm/dl Lipase (11-82) U/L Urine Color Yellow Urine Appearance Clear (Clear) Urine pH 6.0 (4.5-7.5) Ur Specific Loda 1.037 H (1.000-1.030) Urine Protein Negative (Negative) Urine Glucose (UA) Negative (Negative) Urine Ketones Negative (Negative) Urine Blood Negative (Negative) Urine Nitrite Negative (Negative) Urine Bilirubin Negative (Negative) Urine Urobilinogen Negative (Negative) Ur Leukocyte Esterase Negative (Negative) SARS-CoV-2 (PCR) NEGATIVE (Negative) Influenza Type A (PCR) Negative (Neg) Influenza Type B (PCR) Negative (Neg) RSV (RT-PCR) Negative (Neg) ECG Data Attestation: I personally reviewed and interpreted this ECG as follows: Additional Comments: EKG #1 at 1553: Sinus rhythm with a rate of 104. VA 112 QRS [address] elevation or ST depression. EKG #2 at 1602: Sinus tachycardia with rate of 104. VA 132 QRS [address] elevation or ST depression. MDM Narrative 1553: The patient was evaluated in room B7. A complete history and physical exam was performed Cardiac monitoring: An order was placed for continuous cardiac monitoring. The monitor shows a rate of 100 with sinus rhythm interpreted by me 1605: Patient's EKG shows a prolonged QTc. We will hold off on giving any agents that could possibly prolong her QTc further. 1755: Vital signs stable. Labs show leukocytosis of 16.03. Otherwise unremarkable. CT of the abdomen pelvis shows a mildly dilated appendix however there is no adjacent inflammation. Appendix is measuring 8 mm in caliber. Acute appendicitis considered unlikely however close clinical follow-up is recommended. The patient has fluid-filled distal small bowel right colon reflecting gastroenteritis no obstruction. On reassessment the patient has no pain on palpation of her abdomen. No pain on palpation right lower quadrant. Patient states she feels better after IV fluids. Discussed case with Dr. Curtis. It is not felt by me that the patient needs acute OR intervention as the patient has no pain on palpation of her abdomen however given her age, symptoms of nausea, new prolonged QTc, and CT findings, it was thought that that would be best that the patient be observed in the hospital overnight. Dr. Curtis and is in agreement. He agrees to be on consult and the plan is to admit the patient to the medicine team. Antibiotics Rocephin and Flagyl ordered for the patient for potential appendicitis to cover. 1805: Discussed with Kimberly Gomez [facility] hospitalist team who stated to admit to Dr Ruiz. Impression & Plan Nausea and vomiting, Prolonged Q-T interval on ECG Discharge Plan Visit Data Chief Complaint: Hypertension Stated Complaint: HYPERTENSION ED Provider: Leroy Pena Discharge Problem: Nausea and vomiting, Prolonged Q-T interval on ECG Patient Disposition: Admitted As Inpatient Discharge Instructions Interventions: ED Discharge Assessment Last Done: 07/09/22 20:51
[2022-07-10] MEDS: metroNIDAZOLE 500 MG/100 ML BAG IV SCH ×3 (03:18→18:27)
[2022-07-10] MEDS: HEPARIN SOD 5,000 UNIT/0.5 ML VIAL SQ SCH ×3 (05:12→22:02)
[2022-07-10] MEDS: LEVOTHYROXINE SODIUM 75 MCG TABLET PO SCH (05:12)
[2022-07-10 07:59] LABS: Basophils # (auto) 0.03 K/uL (0-0.2); Basophils % (auto) 0.5 %; Eosinophils # (auto) 0.15 K/uL (0-0.50); Eosinophils % (auto) 2.4 %; Hematocrit (blood only) 35.3 % (37.0-47.0); Hemoglobin 12.1 g/dl (12.0-16.0); Immature Granulocytes # (auto) 0.02 K/uL (0.01-0.20); Immature Granulocytes % (auto) 0.3 %; Lymphocytes # (auto) 1.23 K/uL (1.2-3.4); Lymphocytes % (auto) 19.8 %; Mean Corpuscular Hemoglobin 32.3 pg (25.0-34.0); Mean Corpuscular Hgb Conc 34.3 g/dL (32.0-36.0); Mean Corpuscular Volume 94.1 fL (80.0-100.0); Monocytes # (auto) 0.58 K/uL (0.11-0.59); Monocytes % (auto) 9.3 %; Neutrophils % (auto) 67.7 %; Platelet Count 210 K/uL (130-400); RDW Coefficient of Variation 13.1 % (11.5-14.5); RDW Standard Deviation 45.5 fL (36.4-46.3); Red Blood Count 3.75 M/uL (4.20-5.40); White Blood Count 6.21 K/ul (4.8-10.8)
[2022-07-10] MEDS: INSULIN ASPART PER UNIT CHARGE SC SCH ×4 (08:17→22:02)
[2022-07-10 08:18] LABS: Albumin Globulin Ratio 1.7 (0.9-2); Albumin Level 3.2 gm/dl (3.4-5.0); BUN Creatinine Ratio 17.5 (10-20); Bilirubin,Total 0.8 mg/dl (0.2-1.0); Calcium 7.9 mg/dl (8.6-10.3); Creatinine Clr Calc Pharmacy 72.8 ml/min; Est GFR (African American) 101.5 ml/min; Est GFR (Non-African American) 87.6 ml/min; Globulin 1.9 gm/dl (2.5-4.0); Magnesium 1.8 mg/dl (1.7-2.4); Potassium 3.9 mmol/L (3.5-5.1); Total Protein 5.1 gm/dl (6.0-8.3)
[2022-07-10] MEDS: ATORVASTATIN 40 MG TAB PO SCH (08:21)
--- NOTE | 2022-07-10 08:21 | Electrocardiogram Report ---
Test Reason : Blood Pressure : / mmHG Vent. Rate : 104 BPM Atrial Rate : 104 BPM P-R Int : 112 ms QRS Dur : 082 ms QT Int : 494 ms P-R-T Axes : -06 006 064 degrees QTc Int : 649 ms Sinus tachycardia Low voltage QRS Possible Old Inferior infarct Old Anteroseptal infarct T wave abnormality, consider lateral ischemia Diffuse Minor Nonspecific ST abnormality Abnormal ECG No previous ECGs available Confirmed by Jonah Glasgow ([id number]) on 07/10/2022 8:21:17 AM Referred By: REFERRED SELF Confirmed By:Jonah Glasgow
--- NOTE | 2022-07-10 08:26 | Electrocardiogram Report ---
Test Reason : Blood Pressure : / mmHG Vent. Rate : 087 BPM Atrial Rate : 087 BPM P-R Int : 150 ms QRS Dur : 082 ms QT Int : 416 ms P-R-T Axes : 029 022 127 degrees QTc Int : 500 ms Normal sinus rhythm Low voltage QRS Diffuse Nonspecific T wave abnormality Poor R wave progression, consider anterior AR vs. lead placement vs. LVH Abnormal ECG When compared with ECG of 09-JUL-2022 16:02, No significant change was found Confirmed by Jonah Glasgow ([id number]) on 07/10/2022 10:19:20 AM Referred By: REFERRED SELF Confirmed By:Jonah Glasgow
[2022-07-10] MEDS: LANTUS PER UNIT CHARGE SQ SCH ×2 (08:46→22:00)
[2022-07-10 09:10] LABS: Estimated Average Glucose 194 mg/dl; Hemoglobin A1C 8.4 % (4.5-5.6)
--- NOTE | 2022-07-10 10:16 | Electrocardiogram Report ---
Test Reason : Blood Pressure : / mmHG Vent. Rate : 104 BPM Atrial Rate : 104 BPM P-R Int : 132 ms QRS Dur : 084 ms QT Int : 386 ms P-R-T Axes : 021 021 078 degrees QTc Int : 507 ms Sinus tachycardia Possible Old Inferior infarct (cited on or before 09-JUL-2022) Possible Old Anterior infarct (cited on or before 09-JUL-2022) Nonspecific ST and T wave abnormality Lateral leads Abnormal ECG When compared with ECG of 09-JUL-2022 15:53, T wave inversion no longer evident in Lateral leads Reconfirmed by Jonah Glasgow ([id number]) on 07/10/2022 10:19:56 AM Referred By: REFERRED SELF Confirmed By:Jonah Glasgow
--- NOTE | 2022-07-10 12:14 | Surgery Progress Note ---
Date of Service July 10, 2022 Assessment & Plan (1) Gastroenteritis: Plan: dilated appendix, no surrounding inflammation, benign exam, normal wbc. Clinically does not represent appendicitis no surgical intervention indicated diet as tolerated abx as needed from medical perspective, no need from surgery standpoint surgery will sign off, call with questions or concerns Dr. Ching covering over weekend should issues arise. (2) HLD (hyperlipidemia): (3) HTN (hypertension): (4) Hypothyroidism: (5) T2DM (type 2 diabetes mellitus): Admission and Anticipated Discharge Date Admission Date: July 09, 2022 Subjective Admitted with enteritis and cardiac rule out, CT with minimally dilated appendix with no inflammation. Denies abdominal pain. Physical Exam Constitutional: WD/WN, vitals as above Gastrointestinal (Abdomen): normal bowel sounds, soft, nontender, no hepatosplenomegaly (benign exam, specifically no RLQ TTP) Results & Data Vital Signs (Past 12 Hours) Vital Signs Temp Pulse Resp BP BP Pulse Ox O2 Del Method 07/10/22 11:09 36.4 C L 81 19 122/66 93 Room Air 07/10/22 08:09 36.7 C 82 19 124/74 95 Room Air 07/10/22 04:11 36.6 C 79 18 118/63 97 Room Air Laboratory Results Laboratory Results - last 24 hr 07/09/22 07/09/22 07/09/22 15:57 15:57 16:03 WBC 16.03 H RBC 5.06 Hgb 16.3 H Hct 47.5 H MCV 93.9 MCH 32.2 MCHC 34.3 RDW Std Deviation 44.0 RDW Coeff of Neto 12.7 Plt Count 308 MPV 10.1 Immature Gran % (Auto) 0.3 Neut % (Auto) 74.2 Lymph % (Auto) 16.7 [place] % (Auto) 6.2 Eos % (Auto) 2.2 Baso % (Auto) 0.4 Neut # (Auto) 11.89 H Lymph # (Auto) 2.68 [place] # (Auto) 1.00 H Eos # (Auto) 0.35 Baso # (Auto) 0.06 Immature Gran # (Auto) 0.05 Sodium 142 Potassium 3.5 Chloride 105 Carbon Dioxide 28 Anion Gap 9 BUN 15 Creatinine 0.75 Est Cr Clr Drug Dosing 55.9 Est GFR ( Amer) 87.3 Est GFR (Non-Af Amer) 75.3 BUN/Creatinine Ratio 20.0 Glucose 108 H POC Glucose Estimat Average Glucose Hemoglobin A1c Calcium 10.0 Magnesium 2.0 Total Bilirubin 0.8 Direct Bilirubin 0.2 AST 31 ALT 30 Alkaline Phosphatase 69 Total Protein 7.5 Albumin 4.5 Globulin Albumin/Globulin Ratio Lipase 23 Cancelled Urine Color Urine Appearance Urine pH Ur Specific [place] Urine Protein Urine Glucose (UA) Urine Ketones Urine Blood Urine Nitrite Urine Bilirubin Urine Urobilinogen Ur Leukocyte Esterase SARS-CoV-2 (PCR) Influenza Type A (PCR) Influenza Type B (PCR) RSV (RT-PCR) 07/09/22 07/09/22 07/09/22 16:03 17:40 18:43 WBC RBC Hgb Hct MCV MCH MCHC RDW Std Deviation RDW Coeff of [place] Plt Count MPV Immature Gran % (Auto) Neut % (Auto) Lymph % (Auto) [place] % (Auto) Eos % (Auto) Baso % (Auto) Neut # (Auto) Lymph # (Auto) [place] # (Auto) Eos # (Auto) Baso # (Auto) Immature Gran # (Auto) Sodium Potassium Chloride Carbon Dioxide Anion Gap BUN Creatinine Est Cr Clr Drug Dosing Est GFR ( Amer) Est GFR (Non-Af Amer) BUN/Creatinine Ratio Glucose POC Glucose 57 L* Estimat Average Glucose Hemoglobin A1c Calcium Magnesium Total Bilirubin Direct Bilirubin AST ALT Alkaline Phosphatase Total Protein Albumin Globulin Albumin/Globulin Ratio Lipase Urine Color Yellow Urine Appearance Clear Urine pH 6.0 Ur Specific [place] 1.037 H Urine Protein Negative Urine Glucose (UA) Negative Urine Ketones Negative Urine Blood Negative Urine Nitrite Negative Urine Bilirubin Negative Urine Urobilinogen Negative Ur Leukocyte Esterase Negative SARS-CoV-2 (PCR) NEGATIVE Influenza Type A (PCR) Negative Influenza Type B (PCR) Negative RSV (RT-PCR) Negative 07/09/22 07/09/22 07/10/22 19:09 21:15 07:11 WBC 6.21 RBC 3.75 L Hgb 12.1 D Hct 35.3 L MCV 94.1 MCH 32.3 MCHC 34.3 RDW Std Deviation 45.5 RDW Coeff of [place] 13.1 Plt Count 210 MPV 10.0 Immature Gran % (Auto) 0.3 Neut % (Auto) 67.7 Lymph % (Auto) 19.8 [place] % (Auto) 9.3 Eos % (Auto) 2.4 Baso % (Auto) 0.5 Neut # (Auto) 4.20 Lymph # (Auto) 1.23 [place] # (Auto) 0.58 Eos # (Auto) 0.15 Baso # (Auto) 0.03 Immature Gran # (Auto) 0.02 Sodium Potassium Chloride Carbon Dioxide Anion Gap BUN Creatinine Est Cr Clr Drug Dosing Est GFR ( Amer) Est GFR (Non-Af Amer) BUN/Creatinine Ratio Glucose POC Glucose 217 H 136 H Estimat Average Glucose Hemoglobin A1c Calcium Magnesium Total Bilirubin Direct Bilirubin AST ALT Alkaline Phosphatase Total Protein Albumin Globulin Albumin/Globulin Ratio Lipase Urine Color Urine Appearance Urine pH Ur Specific [place] Urine Protein Urine Glucose (UA) Urine Ketones Urine Blood Urine Nitrite Urine Bilirubin Urine Urobilinogen Ur Leukocyte Esterase SARS-CoV-2 (PCR) Influenza Type A (PCR) Influenza Type B (PCR) RSV (RT-PCR) 07/10/22 07/10/22 07/10/22 07:11 07:11 07:24 WBC RBC Hgb Hct MCV MCH MCHC RDW Std Deviation RDW Coeff of [place] Plt Count MPV Immature Gran % (Auto) Neut % (Auto) Lymph % (Auto) [place] % (Auto) Eos % (Auto) Baso % (Auto) Neut # (Auto) Lymph # (Auto) [place] # (Auto) Eos # (Auto) Baso # (Auto) Immature Gran # (Auto) Sodium 140 Potassium 3.9 Chloride 108 H Carbon Dioxide 28 Anion Gap 4 BUN 10 Creatinine 0.57 L Est Cr Clr Drug Dosing 72.8 Est GFR ( Amer) 101.5 Est GFR (Non-Af Amer) 87.6 BUN/Creatinine Ratio 17.5 Glucose 138 H POC Glucose 117 H Estimat Average Glucose 194 Hemoglobin A1c 8.4 H Calcium 7.9 L D Magnesium 1.8 Total Bilirubin 0.8 Direct Bilirubin AST 19 ALT 21 Alkaline Phosphatase 46 Total Protein 5.1 L D Albumin 3.2 L Globulin 1.9 L Albumin/Globulin Ratio 1.7 Lipase Urine Color Urine Appearance Urine pH Ur Specific [place] Urine Protein Urine Glucose (UA) Urine Ketones Urine Blood Urine Nitrite Urine Bilirubin Urine Urobilinogen Ur Leukocyte Esterase SARS-CoV-2 (PCR) Influenza Type A (PCR) Influenza Type B (PCR) RSV (RT-PCR) 07/10/22 11:40 WBC RBC Hgb Hct MCV MCH MCHC RDW Std Deviation RDW Coeff of Neto Plt Count MPV Immature Gran % (Auto) Neut % (Auto) Lymph % (Auto) [place] % (Auto) Eos % (Auto) Baso % (Auto) Neut # (Auto) Lymph # (Auto) [place] # (Auto) Eos # (Auto) Baso # (Auto) Immature Gran # (Auto) Sodium Potassium Chloride Carbon Dioxide Anion Gap BUN Creatinine Est Cr Clr Drug Dosing Est GFR ( Amer) Est GFR (Non-Af Amer) BUN/Creatinine Ratio Glucose POC Glucose 175 H Estimat Average Glucose Hemoglobin A1c Calcium Magnesium Total Bilirubin Direct Bilirubin AST ALT Alkaline Phosphatase Total Protein Albumin Globulin Albumin/Globulin Ratio Lipase Urine Color Urine Appearance Urine pH Ur Specific [place] Urine Protein Urine Glucose (UA) Urine Ketones Urine Blood Urine Nitrite Urine Bilirubin Urine Urobilinogen Ur Leukocyte Esterase SARS-CoV-2 (PCR) Influenza Type A (PCR) Influenza Type B (PCR) RSV (RT-PCR) PG Care Time/CCT Total # of Minutes Spent Total Time Spent with Patient: Total time spent is greater than 50% in coordination of care (as documented) at patient's floor/unit and/or counseling patient: Coding Level of Care Code 00922 SUB INP/OBS CARE 04/29MIN Diagnoses Gastroenteritis K52.9 HLD (hyperlipidemia) E78.5 HTN (hypertension) I10 Hypothyroidism E03.9 T2DM (type 2 diabetes mellitus) E11.9
[2022-07-10] MEDS ORDERED: diphenhydrAMINE Capsule 25 MG CAP PO PRN (12:25)
[2022-07-10] MEDS ORDERED: DOXYLAMINE SUCCINATE 25 MG PO PRN (13:00)
--- NOTE | 2022-07-10 13:41 | Hospitalist Progress Note ---
Date of Service July 10, 2022 Assessment & Plan (1) Nausea and vomiting: (2) Gastroenteritis: (3) Prolonged Q-T interval on ECG: (4) T2DM (type 2 diabetes mellitus): (5) HLD (hyperlipidemia): (6) Hypothyroidism: Plan Patient is an 81 yr female with H/O HTN, HLD, T2DM, hypothyroidism, age-related osteoporosis, idiopathic stuttering who presents to ED secondary to nausea and vomiting x2 days. Daughter is at bedside. Patient states on Wednesday, 5 days ago, she developed nausea and vomiting that lasted for several hours. Gastroenteritis Likely viral etiology --CT abd/pelvis: Mildly dilated appendix. However, no adjacent inflammation. Acute appendicitis is considered unlikely however close clinical follow-up is recommended.2. Fluid-filled distal small bowel and right colon. This may reflect gastroenteritis. No bowel obstruction. Extensive colonic diverticulosis. No evidence for acute diverticulitis. -- Serology negative for COVID, influenza, RSV We will check stool studies if patient develops diarrhea Empirically started on Rocephin, Flagyl Advance diet as tolerated Appreciate surgery input: Clinically less likely to have appendicitis On gentle IV fluids Prolonged QTc Last EKG in [facility] was from 2009 revealed normal QTc Avoid QTc prolonging meds Monitor EKG for QTc Troponin negative DM II Insulin dependent HbA1C 8.4 Lantus/NovoLog per protocol Monitor BGs Hyperlipidemia Continue statin Hypothyroidism Continue levothyroxine H/O Hypertension Not on meds BP stable Monitor DVT Px: SQ heparin Code Status FULL CODE Admission and Anticipated Discharge Date Admission Date: July 09, 2022 Subjective Patient is seen and examined at bedside States feeling tired Nausea, vomiting resolved Tolerating liquid diet Denies any chest pain, dyspnea, dizziness, abdominal pain Discussed with patient's daughter at bedside No other complaints Review of Systems Review of Systems: All systems reviewed & are unremarkable except as noted in Subjective Physical Exam Physical Exam: Physical Exam: Vitals signs as noted above General Appearance:Moderately built and nourished, no apparent distress Head: normocephalic, Atraumatic Eyes: normal inspection, EOMI Neck: supple, Trachea midline Respiratory/Chest: Normal breath sounds, CTA, No accessory muscle use Cardiovascular: S1, S2, No murmur Abdomen/GI:Soft, Non tender, Bowel sounds present Extremities/Musculoskeletal:normal inspection, no edema Neurologic/Psych:AAOX3, grossly no focal neurological deficits, + chronic stuttering Skin: normal color, warm Results & Data Results & Data Vital Signs (Past 12 Hours) Vital Signs Temp Pulse Pulse Resp BP BP Pulse Ox 07/10/22 08:00 78 07/10/22 11:09 36.4 C L 81 19 122/66 93 07/10/22 08:09 36.7 C 82 19 124/74 95 07/10/22 04:11 36.6 C 79 18 118/63 97 O2 Del Method 07/10/22 08:00 07/10/22 11:09 Room Air 07/10/22 08:09 Room Air 07/10/22 04:11 Room Air Laboratory Results Short CBC 07/09/22 07/10/22 Range/Units 15:57 07:11 WBC 16.03 H 6.21 (4.8-10.8) K/ul Hgb 16.3 H 12.1 D (12.0-16.0) g/dl Hct 47.5 H 35.3 L (37.0-47.0) % Plt Count 308 210 (130-400) K/uL BMP 07/09/22 07/10/22 15:57 07:11 Sodium 142 140 Potassium 3.5 3.9 Chloride 105 108 H Carbon Dioxide 28 28 BUN 15 10 Creatinine 0.75 0.57 L Glucose 108 H 138 H Calcium 10.0 7.9 L D Liver Function 07/09/22 07/10/22 Range/Units 15:57 07:11 Total Bilirubin 0.8 0.8 (0.2-1.0) mg/dl Direct Bilirubin 0.2 (0-0.2) mg/dl AST 31 19 (13-39) U/L ALT 30 21 (7-52) U/L Alkaline Phosphatase 69 46 (34-104) U/L Albumin 4.5 3.2 L (3.4-5.0) gm/dl Urine 07/09/22 Range/Units 17:40 Urine Color Yellow Urine Appearance Clear (Clear) Urine pH 6.0 (4.5-7.5) Ur Specific [place] 1.037 H (1.000-1.030) Urine Protein Negative (Negative) Urine Glucose (UA) Negative (Negative)
[2022-07-10] MEDS: NSS + 20MEQ KCL 20 MEQ/1,000 ML BAG IV SCH (14:47)
[2022-07-10] MEDS ORDERED: cefTRIAXone SODIUM 1,000 MG in DEXTROSE 5% AD-VAN 50 ML IV SCH (18:00)
[2022-07-11] MEDS: metroNIDAZOLE 500 MG/100 ML BAG IV SCH ×2 (03:46→11:36)
[2022-07-11] MEDS: LEVOTHYROXINE SODIUM 75 MCG TABLET PO SCH (05:16)
[2022-07-11] MEDS: HEPARIN SOD 5,000 UNIT/0.5 ML VIAL SQ SCH (05:16)
[2022-07-11 06:58] LABS: Hematocrit (blood only) 36.3 % (37.0-47.0); Hemoglobin 12.3 g/dl (12.0-16.0); Mean Corpuscular Hemoglobin 32.3 pg (25.0-34.0); Mean Corpuscular Hgb Conc 33.9 g/dL (32.0-36.0); Mean Corpuscular Volume 95.3 fL (80.0-100.0); Platelet Count 201 K/uL (130-400); RDW Standard Deviation 45.4 fL (36.4-46.3); Red Blood Count 3.81 M/uL (4.20-5.40); White Blood Count 5.41 K/ul (4.8-10.8)
[2022-07-11 07:22] LABS: BUN Creatinine Ratio 14.1 (10-20); Creatinine Clr Calc Pharmacy 65.1 ml/min; Est GFR (African American) 97.7 ml/min; Est GFR (Non-African American) 84.3 ml/min; Potassium 4.4 mmol/L (3.5-5.1)
[2022-07-11] MEDS: ATORVASTATIN 40 MG TAB PO SCH (08:02)
[2022-07-11] MEDS: INSULIN ASPART PER UNIT CHARGE SC SCH ×2 (09:01→12:33)
[2022-07-11] MEDS: LANTUS PER UNIT CHARGE SQ SCH (09:02)
--- NOTE | 2022-07-11 13:05 | Hospitalist Progress Note ---
Date of Service July 11, 2022 Assessment & Plan (1) Nausea and vomiting: (2) Gastroenteritis: (3) Prolonged Q-T interval on ECG: (4) T2DM (type 2 diabetes mellitus): (5) HLD (hyperlipidemia): (6) Hypothyroidism: Plan Patient is an 81 yr female with H/O HTN, HLD, T2DM, hypothyroidism, age-related osteoporosis, idiopathic stuttering who presents to ED secondary to nausea and vomiting x2 days. Daughter is at bedside. Patient states on Wednesday, 5 days ago, she developed nausea and vomiting that lasted for several hours. Gastroenteritis Likely viral etiology --CT abd/pelvis: Mildly dilated appendix. However, no adjacent inflammation. Acute appendicitis is considered unlikely however close clinical follow-up is recommended.2. Fluid-filled distal small bowel and right colon. This may reflect gastroenteritis. No bowel obstruction. Extensive colonic diverticulosis. No evidence for acute diverticulitis. -- Serology negative for COVID, influenza, RSV We will check stool studies if patient develops diarrhea Empirically received Rocephin, Flagyl Tolerated diet Appreciate surgery input: Clinically less likely to have appendicitis received IV fluids Prolonged QTc Last EKG in [facility] was from 2009 revealed normal QTc Avoid QTc prolonging meds Monitor EKG for QTc Troponin negative QTc normalized on repeat EKG Advised to follow-up with cardiology as outpatient DM II Insulin dependent HbA1C 8.4 Lantus/NovoLog per protocol Monitor BGs Hyperlipidemia Continue statin Hypothyroidism Continue levothyroxine H/O Hypertension Not on meds BP stable Monitor DVT Px: SQ heparin Code Status FULL CODE Admission and Anticipated Discharge Date Admission Date: July 09, 2022 Subjective Patient is seen and examined at bedside States feeling well today Offers no complaints Eager to get discharged Nausea, vomiting resolved Denies any chest pain, dyspnea, dizziness, abdominal pain Review of Systems Review of Systems: All systems reviewed & are unremarkable except as noted in Subjective Physical Exam Physical Exam: Physical Exam: Vitals signs as noted above General Appearance:Moderately built and nourished, no apparent distress Head: normocephalic, Atraumatic Eyes: normal inspection, EOMI Neck: supple, Trachea midline Respiratory/Chest: Normal breath sounds, CTA, No accessory muscle use Cardiovascular: S1, S2, No murmur Abdomen/GI:Soft, Non tender, Bowel sounds present Extremities/Musculoskeletal:normal inspection, no edema Neurologic/Psych:AAOX3, grossly no focal neurological deficits, + chronic [place] ttering Skin: normal color, warm Results & Data Results & Data Vital Signs (Past 12 Hours) Vital Signs Temp Pulse Pulse Resp BP BP Pulse Ox 07/11/22 10:58 36.7 C 83 18 131/76 95 07/11/22 07:23 98 H 07/11/22 07:21 36.7 C 88 18 122/73 95 07/11/22 03:39 36.6 C 86 16 118/72 97 O2 Del Method 07/11/22 10:58 Room Air 07/11/22 07:23 07/11/22 07:21 Room Air 07/11/22 03:39 Room Air Laboratory Results Short CBC 07/11/22 Range/Units 06:12 WBC 5.41 (4.8-10.8) K/ul Hgb 12.3 (12.0-16.0) g/dl Hct 36.3 L (37.0-47.0) % Plt Count 201 (130-400) K/uL BMP 07/11/22 06:12 Sodium 140 Potassium 4.4 Chloride 108 H Carbon Dioxide 29 BUN 9 Creatinine 0.64 Glucose 155 H Calcium 8.0 L
--- NOTE | 2022-07-11 13:14 | Discharge Summary ---
Date of Service July 11, 2022 Admission HPI Per Admitting Provider This is an 81-year-old female who has significant past medical history of HTN, HLD, T2DM, hypothyroidism, age-related osteoporosis, idiopathic stuttering who presents to ED secondary to nausea and vomiting x2 days. Daughter is at bedside. Patient states on Wednesday, 5 days ago, she developed nausea and vomiting that lasted for several hours. She just assumed she had a gastroenteritis. The following 2 to 3 days she felt generally unwell, but each day progressed to feeling better. Her appetite has been significantly decreased. 2 days ago she was able to return to her exercise class and she even had exercise class this morning. Yesterday and this morning she felt in her normal state of health. At baseline she lives alone at home, ambulates assist device and still drives. Today around 1 PM she developed acute onset nausea and profuse vomiting. She also felt dizzy and lightheaded. She was to see her PCP today, but called into the nurse who recommended EMS be summoned. In route she received antinausea medication and in ED received IV fluid. She is starting to feel better. Prior to my examination patient's blood sugar dropped to 57 and she refused received D50 which then improved her blood sugar to the low 200s. She denies any sick contacts, fever, chills, sweats, chest pain, shortness breath, palpitations, Cough, URI symptoms, abdominal pain, dysuria, increased urgency or frequency with urination, melena or hematochezia. She does feel generally bloated and also had diarrhea on Wednesday but denied any diarrheal episodes today. In ED patient remained hemodynamically stable. Lab work was notable for elevated WBC at 16 K, H&H 16.3 and 47.5, BUN 15, creatinine 0.75, urinalysis normal. CT abdomen pelvis concerning for mildly dilated appendix however no adjacent inflammation, fluid-filled distal small bowel and right colon concerning for a gastroenteritis. In ED she received IV fluid, 1 g IV Rocephin and 500 mg of IV Flagyl. Admission Exam Per Admitting Provider Constitutional: WD/WN, elderly, female, idiopathic stutter noted, hard of hearing but improves without mask, vitals as above, NAD, sitting up in bed, pleasant, conversing easily Head: Normocephalic, Atraumatic Eyes: PERRL, conjunctivae normal, anicteric sclerae ENMT: external ear and nose normal, oropharynx normal Neck: trachea midline, no thyromegaly normal visual inspection dry membranes Respiratory: normal respiratory effort, lungs clear to auscultation, no wheeze, rales, rhonchi. Normal insp/exp effort, no accessory muscle use Cardiovascular: RRR, no murmur, no edema Vessels: no JVD or carotid bruit Chest: normal inspection of chest Abdomen: normal bowel sounds, soft, nontender, mild distention, no hepatosplenomegaly Musculoskeletal: no cyanosis or clubbing, extremities motor strength 5/5 Skin: no rashes, warm and dry normal turgor Neurologic: PERRL, EOMI, accommodation nl, no face palsy, no dysarthria CN's II-XI intact bilaterally and moves all extremities Psychiatric: A+Ox3, euthymic affect Lymphatic: no cervical or axillary lymphadenopathy : deferred Principal Diagnosis Acute Gastroenteritis Abnormal EKG Discharge Data Allergies Allergy/AdvReac Type Severity Reaction Status Date / Time Penicillins Allergy Mild RASH Verified 02/15/13 10:42 tetracycline Allergy Mild RASH Verified 02/15/13 10:42 codeine AdvReac mental Verified 07/09/22 22:27 status changes after codeine morphine AdvReac mental Verified 07/09/22 22:27 status changes after codeine Consultations 07/09/22 17:57 ED Decision to Admit Stat 07/09/22 17:58 Consult General Surgery Stat Procedures Performed Laboratory Results WBC 5.41 K/ul (4.8-10.8) 07/11/22 06:12 RBC 3.81 M/uL (4.20-5.40) L 07/11/22 06:12 Hgb 12.3 g/dl (12.0-16.0) 07/11/22 06:12 Hct 36.3 % (37.0-47.0) L 07/11/22 06:12 MCV 95.3 fL (80.0-100.0) 07/11/22 06:12 MCH 32.3 pg (25.0-34.0) 07/11/22 06:12 MCHC 33.9 g/dL (32.0-36.0) 07/11/22 06:12 RDW Std Deviation 45.4 fL (36.4-46.3) 07/11/22 06:12 RDW Coeff of Neto 13.0 % (11.5-14.5) 07/11/22 06:12 Plt Count 201 K/uL (130-400) 07/11/22 06:12 MPV 10.0 fL (9.4-12.4) 07/11/22 06:12 Immature Gran % (Auto) 0.3 % 07/10/22 07:11 Neut % (Auto) 67.7 % 07/10/22 07:11 Lymph % (Auto) 19.8 % 07/10/22 07:11 [place] % (Auto) 9.3 % 07/10/22 07:11 Eos % (Auto) 2.4 % 07/10/22 07:11 Baso % (Auto) 0.5 % 07/10/22 07:11 Neut # (Auto) 4.20 K/uL (1.40-6.50) 07/10/22 07:11 Lymph # (Auto) 1.23 K/uL (1.2-3.4) 07/10/22 07:11 [place] # (Auto) 0.58 K/uL (0.11-0.59) 07/10/22 07:11 Eos # (Auto) 0.15 K/uL (0-0.50) 07/10/22 07:11 Baso # (Auto) 0.03 K/uL (0-0.2) 07/10/22 07:11 Immature Gran # (Auto) 0.02 K/uL (0.01-0.20) 07/10/22 07:11 Sodium 140 mmol/L (136-145) 07/11/22 06:12 Potassium 4.4 mmol/L (3.5-5.1) 07/11/22 06:12 Chloride 108 mmol/L (98-107) H 07/11/22 06:12 Carbon Dioxide 29 mmol/L (21-32) 07/11/22 06:12 Anion Gap 3 (3-11) 07/11/22 06:12 BUN 9 mg/dl (6-23) 07/11/22 06:12 Creatinine 0.64 mg/dl (0.6-1.2) 07/11/22 06:12 Est Cr Clr Drug Dosing 65.1 ml/min 07/11/22 06:12 Est GFR ( Amer) 97.7 ml/min 07/11/22 06:12 Est GFR (Non-Af Amer) 84.3 ml/min 07/11/22 06:12 BUN/Creatinine Ratio 14.1 (10-20) 07/11/22 06:12 Glucose 155 mg/dl (70-99(Fasting)) H 07/11/22 06:12 POC Glucose 243 mg/dl (70-99) H 07/11/22 11:24 Estimat Average Glucose 194 mg/dl 07/10/22 07:11 Hemoglobin A1c 8.4 % (4.5-5.6) H 07/10/22 07:11 Calcium 8.0 mg/dl (8.6-10.3) L 07/11/22 06:12 Magnesium 2.0 mg/dl (1.7-2.4) 07/11/22 06:12 Total Bilirubin 0.8 mg/dl (0.2-1.0) 07/10/22 07:11 Direct Bilirubin 0.2 mg/dl (0-0.2) 07/09/22 15:57 AST 19 U/L (13-39) 07/10/22 07:11 ALT 21 U/L (7-52) 07/10/22 07:11 Alkaline Phosphatase 46 U/L (34-104) 07/10/22 07:11 Troponin I High Sens 4.7 pg/ml (0-14) 07/10/22 19:50 Total Protein 5.1 gm/dl (6.0-8.3) L D 07/10/22 07:11 Albumin 3.2 gm/dl (3.4-5.0) L 07/10/22 07:11 Globulin 1.9 gm/dl (2.5-4.0) L 07/10/22 07:11 Albumin/Globulin Ratio 1.7 (0.9-2) 07/10/22 07:11 Lipase Cancelled 07/09/22 16:03 Urine Color Yellow 07/09/22 17:40 Urine Appearance Clear (Clear) 07/09/22 17:40 Urine pH 6.0 (4.5-7.5) 07/09/22 17:40 Ur Specific [place] 1.037 (1.000-1.030) H 07/09/22 17:40 Urine Protein Negative (Negative) 07/09/22 17:40 Urine Glucose (UA) Negative (Negative) 07/09/22 17:40 Urine Ketones Negative (Negative) 07/09/22 17:40 Urine Blood Negative (Negative) 07/09/22 17:40 Urine Nitrite Negative (Negative) 07/09/22 17:40 Urine Bilirubin Negative (Negative) 07/09/22 17:40 Urine Urobilinogen Negative (Negative) 07/09/22 17:40 Ur Leukocyte Esterase Negative (Negative) 07/09/22 17:40 SARS-CoV-2 (PCR) NEGATIVE (Negative) 07/09/22 16:03 Influenza Type A (PCR) Negative (Neg) 07/09/22 16:03 Influenza Type B (PCR) Negative (Neg) 07/09/22 16:03 RSV (RT-PCR) Negative (Neg) 07/09/22 16:03 Impressions Abdomen/Pelvis CT 07/09/22 16:39 CT OF THE ABDOMEN AND PELVIS WITH CONTRAST CLINICAL HISTORY: Nausea and vomiting. COMPARISON STUDY: None. TECHNIQUE: Following IV administration of 78 mL of Optiray, axial images of the abdomen and pelvis were obtained from the lung bases to the proximal femurs. Images were reviewed in the axial, sagittal, and coronal planes. IV contrast was administered without complication. Automated exposure control was utilized for the study. A dose lowering technique was utilized adhering to the principles of ALARA. CT DOSE: 1053.78 mGy.cm FINDINGS: Lung bases are unremarkable. No pneumatosis, free air or portal venous gas is present. Liver, spleen, adrenal glands and pancreas are unremarkable. There is no biliary or pancreatic ductal dilatation. 2 left renal cysts measure up to 2.8 cm. There is no hydronephrosis. This study is mildly compromised by motion artifact. There is no evidence for a bowel obstruction. Extensive colonic diverticulosis is noted. There is no evidence for acute diverticulitis. The distal small bowel and right colon are mildly fluid-filled. The appendix is mildly dilated, measuring 8 mm in caliber. There is no adjacent stranding. No f ree air or abscess is present. Calcified fundal fibroid is incidentally noted. There is no ascites. No lymphadenopathy. No acute fractures. No suspicious lesions are identified within the visualized skeletal structures. IMPRESSION: 1. Mildly dilated appendix. However, no adjacent inflammation. Acute appendicitis is considered unlikely however close clinical follow-up is recommended. 2. Fluid-filled distal small bowel and right colon. This may reflect gastroenteritis. No bowel obstruction. 3. Extensive colonic diverticulosis. No evidence for acute diverticulitis. ACT 112: Negative or not required by law. Electronically signed by: Camacho Loja M.D. 07/09/2022 5:30 PM Ordered Studies 07/09/22 16:39 CT abd pelvis IV con only Stat Hospital Course (1) Nausea and vomiting: (2) Gastroenteritis: (3) Prolonged Q-T interval on ECG: (4) T2DM (type 2 diabetes mellitus): (5) HLD (hyperlipidemia): (6) Hypothyroidism: Plan Patient is an 81 yr female with H/O HTN, HLD, T2DM, hypothyroidism, age-related osteoporosis, idiopathic stuttering who presents to ED secondary to nausea and vomiting x2 days. Daughter is at bedside. Patient states on Wednesday, 5 days ago, she developed nausea and vomiting that lasted for several hours. Gastroenteritis Likely viral etiology --CT abd/pelvis: Mildly dilated appendix. However, no adjacent inflammation. Acute appendicitis is considered unlikely however close clinical follow-up is recommended.2. Fluid-filled distal small bowel and right colon. This may reflect gastroenteritis. No bowel obstruction. Extensive colonic diverticulosis. No evidence for acute diverticulitis. -- Serology negative for COVID, influenza, RSV We will check stool studies if patient develops diarrhea Empirically received Rocephin, Flagyl Tolerated diet Appreciate surgery input: Clinically less likely to have appendicitis received IV fluids Prolonged QTc Last EKG in [facility] was from 2009 revealed normal QTc Avoid QTc prolonging meds Possible Old Inferior infarct Monitor EKG for QTc Troponin negative QTc normalized on repeat EKG Will start on aspirin 81mg daily Advised to follow-up with cardiology as outpatient DM II Insulin dependent HbA1C 8.4 Lantus/NovoLog per protocol Monitor BGs Hyperlipidemia Continue statin Hypothyroidism Continue levothyroxine H/O Hypertension Not on meds BP stable Monitor DVT Px: SQ heparin Code Status FULL CODE Total Time Total Time Spent Total Time Spent (In Minutes): 56 minutes Discharge Plan Discharge Items Patient Disposition: Home - Self-Care Reason For Visit: NAUSEA AND VOMITING Discharge Diagnosis: Acute Gastroenteritis Abnormal EKG Activity: Per Instructions section Exercise/Sports: Gradually increase as tolerated Non-emergency contact: Primary Care Provider Call non-emergency contact if: you have any medication questions, your symptoms worsen, your pain is concerning for you and you have a fever Follow-up/Referrals: Marion El DO [Primary Care Provider] - Diet: Carb Consistent or DM2 Addtl Attending Provider Instructions: Follow-up with your primary care physician in 1 week as advised Follow-up with your cook specialty for further evaluation of the abnormal EKG for possible stress test as outpatient Seek immediate medical attention if your symptoms reoccur or worsen Please take all medications as instructed on discharge list below. Please call if you have any questions or problems. You can reach a [facility] hospitalist on duty at [facility] 24 hours a day by calling [phone] Pending Studies at Discharge: No Stand-Alone Forms: My [facility] [employer], Smoking Cessation Medications and DC Order Prescriptions: New aspirin 81 mg tablet,chewable 81 mg PO DAILY Qty: 30 0RF Continued atorvastatin 80 mg tablet 80 mg PO DAILY Unisom SleepMelts 25 mg Tablet,Disintegrating 25 mg PO HS PRN (Reason: Insomnia) No Action alendronate 70 mg tablet 70 mg PO WK levothyroxine 75 mcg tablet 75 mcg PO DAILYBB insulin aspart U-100 [Novolog FlexPen U-100 Insulin] 100 unit/mL (3 mL) Insulin Pen 1 sliding scale dose SUBCUT USEASDIRECTD Rx Instructions: inject 7-9 units with breakfast,8 units with lunch and dinner and correct with provided dose correction. max 35 units per day Xultophy 100/3.6 100 unit-3.6 mg /mL (3 mL) Insulin Pen See Rx Instructions .ROUTE .COMPLEX Rx Instructions: inject 14 units subcutaneously every and 16 units daily on wednesday and wednesday cholecalciferol (vitamin D3) [Vitamin D3] 25 mcg (1,000 unit) Tablet 25 mcg PO DAILY Discharge Orders: Discharge Order (Routine); Ordered 07/11/22 Ordered By: Jose Haney/Other Patient Handouts: Managing Type 2 Diabetes Admission Data Admit Date/Time: 07/09/22 18:51 Attending Provider: Jose Nelson Admit Provider: Anna Montes Primary Care Provider: Marion El Other Providers: Anna Montes ; Dale Curtis
--- NOTE | 2022-07-11 21:42 | Electrocardiogram Report ---
Test Reason : Blood Pressure : / mmHG Vent. Rate : 077 BPM Atrial Rate : 077 BPM P-R Int : 134 ms QRS Dur : 082 ms QT Int : 360 ms P-R-T Axes : 035 040 114 degrees QTc Int : 407 ms Normal sinus rhythm Nonspecific T wave abnormality Abnormal ECG When compared with ECG of 10-JUL-2022 05:04, QT has shortened Confirmed by Freedom Barnes ([id number]) on 07/11/2022 9:42:34 PM Referred By: REFERRED SELF Confirmed By:Freedom Barnes
== END 2022-07-11 14:12 | disposition home or self-care (01) | DRG 392 ==
LOC: ED 15:41 → SUATTDRO 18:51 → 2N 18:51